=== PATIENT | male | born 1990 | race Caucasian/White ===

== ENCOUNTER 2023-04-29 07:26 | Emergency (ER) | payer BC ==
[2023-04-29] MEDS ORDERED: Dexamethasone 10 MG/ML SDV IM STA (07:45)
[2023-04-29] MEDS ORDERED: Ketorolac 30 MG/ML SDV IM ONE (07:45)
== END 2023-04-29 09:06 | disposition home or self-care (01) ==
LOC: MW.ED 07:26
DX: M70.52 Other bursitis of knee, left knee (principal); Z88.0 Allergy status to penicillin
CPT/HCPCS: 73562; 96372; 99283; J1100; J1885